=== PATIENT | female | born 1970 | race African-American/Black ===

== ENCOUNTER 2018-11-14 13:15 | Outpatient (CLI) | payer BC | END 2018-11-14 13:16 | disposition home or self-care (01) | LOC: BICMAMMO 13:15 | PROVIDERS: ATTEND Family Medicine | DX: Z12.31 Encounter for screening mammogram for malignant neoplasm of breast (principal); N63.20 Unspecified lump in the left breast, unspecified quadrant | CPT/HCPCS: 77063; 77067 ==

== ENCOUNTER 2018-11-22 14:44 | Outpatient (CLI) | payer BC ==
--- NOTE | 2018-11-22 15:49 | ULT ---
LEFT BREAST ULTRASOUND: Date: 11/22/18 HISTORY: Abnormal mammogram. FINDINGS: Correlation made with the mammogram of 11/14/18. Sonographic evaluation of the left upper outer breast demonstrates multiple cysts at the 1, 2, and 3 o'clock positions, the largest measuring about 8.0 mm at the 1 o'clock position. A cluster of cysts i s noted at the 2 o'clock position, likely corresponding to the mammographic finding. IMPRESSION: BI-RADS Category 2 - Benign findings. Return to annual mammographic screening. POS: OFF
== END 2018-11-22 14:45 | disposition home or self-care (01) ==
LOC: BICULT 14:44
PROVIDERS: ATTEND Family Medicine
DX: N63.20 Unspecified lump in the left breast, unspecified quadrant (principal)

== ENCOUNTER 2019-02-15 12:43 | Outpatient (CLI) | payer BC ==
--- NOTE | 2019-02-19 13:25 | MMO ---
Left Breast MAMMO [facility] LT. CLINICAL HISTORY: Patient is 48 years old and is seen for diagnostic exam. The patient has the following family history of breast cancer: maternal aunt, malignant (generic) and cousin female, malignant (generic). The patient has no personal history of cancer. The patient has a history of left needle biopsy in January,. VIEWS: The views performed were: left craniocaudal and left mediolateral oblique. FILMS COMPARED: The present examination has been compared to prior imaging studies performed at [facility] on 11/14/2018 and 11/22/2018. MAMMOGRAM FINDINGS: There are scattered fibroglandular densities. There is a new biopsy clip seen in the upper-outer region of the left breast. Biopsy clip is in region of previously seen mass. IMPRESSION: NEW BIOPSY CLIP IN THE LEFT BREAST IS CONFIRMED UTILIZING POST PROCEDURE MAMMOGRAM. THE RESULTS OF THIS EXAM WERE SENT TO THE PATIENT. MAMMOGRAPHY NOTE: 1. A negative mammogram report should not delay a biopsy if a dominant of clinically suspicious mass is present. 2. Approximately 10% to 15% of breast cancers are not detected by mammography. 3. Adenosis and dense breasts may obscure an underlying neoplasm.
== END 2019-02-15 12:44 | disposition home or self-care (01) ==
LOC: BICMAMMO 12:43
PROVIDERS: ATTEND Specialist
DX: N60.02 Solitary cyst of left breast (principal); Z80.3 Family history of malignant neoplasm of breast; Z98.890 Other specified postprocedural states

== ENCOUNTER 2023-11-09 14:42 | Outpatient (CLI) | payer BC | END 2023-11-09 14:43 | disposition home or self-care (01) | LOC: BICMAMMO 14:42 | PROVIDERS: ATTEND Family Medicine | DX: Z12.31 Encounter for screening mammogram for malignant neoplasm of breast (principal); Z80.3 Family history of malignant neoplasm of breast | CPT/HCPCS: 77063; 77067 ==

== ENCOUNTER 2024-11-22 15:02 | Outpatient (CLI) | payer BC | END 2024-11-22 15:03 | disposition home or self-care (01) | LOC: BICMAMMO 15:02 | PROVIDERS: ATTEND Family Medicine | DX: Z12.31 Encounter for screening mammogram for malignant neoplasm of breast (principal); Z80.3 Family history of malignant neoplasm of breast; Z91.89 Other specified personal risk factors, not elsewhere classified | CPT/HCPCS: 77063; 77067 ==